=== PATIENT | male | born 1945 | race Caucasian/White ===

== ENCOUNTER → 2023-03-06 10:54 | Outpatient (REF) | payer MEDICARE, OTHER, SELFPAY ==
[2023-03-06 11:38] LABS: Hematocrit 34.2 % (39.0-52.0); Hemoglobin 11.4 g/dL (13.0-18.0); Mean Corp Hgb Conc. 33.3 g/dL (33.0-37.0); Mean Corpuscular Hgb 29.9 pg (27.0-31.0); Mean Corpuscular Volume 89.8 fL (80.0-94.0); Mean Platelet Volume 11.3 fL (7.4-10.4); Platelet Count 292 10^3/uL (130-400); Red Blood Cell Count 3.81 10^6/uL (4.70-6.10); Red Cell Dist. Width 12.2 % (11.5-14.5)
[2023-03-06 12:00] LABS: Blood Urea Nitrogen 46 mg/dl (9-20); Calcium 9.8 mg/dl (8.4-10.2); Carbon Dioxide 22 mmol/L (22-30); Chloride 100 mmol/L (98-107); Glucose 97 mg/dl (70-99); Iron 111 ug/dl (49-181); Phosphorus 4.4 mg/dl (2.5-4.5); Potassium 5.3 mmol/L (3.5-5.1); Sodium 134 mmol/L (135-145); eGFR 26.94
[2023-03-06 12:09] LABS: Percent Saturation 43 % (20-50); Total Iron Binding Capacity 258 ug/dl (261-462)
[2023-03-06 12:15] LABS: Intact PTH 49.9 pg/ml (13.6-85.8)
[2023-03-06 12:27] LABS: Protein/creatinine Ratio 0.8; Urine Protein 34 mg/dl
[2023-03-10 14:25] LABS: Albumin 4.24 g/dL (3.75-5.01); Alpha 2 Globulin 0.69 g/dL (0.48-1.05); SPEP IFE Reflex Not Done; Total Protein-Electrophoresis 6.8 g/dL (6.3-8.2)
== END ==
LOC: REG 10:54
PROVIDERS: ATTENDING PHYSICIAN Internal Medicine; FAMILY PHYSICIAN Internal Medicine
DX: N18.4 Chronic kidney disease, stage 4 (severe) (principal); D64.9 Anemia, unspecified
CPT/HCPCS: 36415; 80069; 82570; 82728; 83540; 83550; 83970; 84155; 84156; 84165; 85027

== ENCOUNTER → 2023-03-07 14:14 | Outpatient (REF) | payer MEDICARE, OTHER, SELFPAY ==
[2023-03-10 20:21] LABS: 24 Hour Urine Total Volume 2300 mL; Total Protein, Urine 327 mg/d (<=150); Urine Collection Length 24 hr; Urine Free Kappa Excretion/Day 42.83 mg/d; Urine Free Kappa Light Chains 18.62 mg/L (0.00-32.90); Urine Free Lambda Light Chains 2.74 mg/L (0.00-3.79)
== END ==
LOC: REG 14:14
PROVIDERS: ATTENDING PHYSICIAN Internal Medicine; FAMILY PHYSICIAN Internal Medicine
DX: N18.4 Chronic kidney disease, stage 4 (severe) (principal)
CPT/HCPCS: 81050; 83521; 84156; 86335

== ENCOUNTER → 2023-04-06 10:52 | Outpatient (REF) | payer MEDICARE, OTHER, SELFPAY ==
[2023-04-06 12:40] LABS: Albumin 4.2 g/dl (3.5-5.0); Blood Urea Nitrogen 28 mg/dl (9-20); Calcium 9.4 mg/dl (8.4-10.2); Carbon Dioxide 24 mmol/L (22-30); Chloride 107 mmol/L (98-107); Glucose 86 mg/dl (70-99); Phosphorus 4.2 mg/dl (2.5-4.5); Sodium 135 mmol/L (135-145); eGFR 26.94
== END ==
LOC: REG 10:52
PROVIDERS: ATTENDING PHYSICIAN Internal Medicine
DX: I10 Essential (primary) hypertension (principal); N18.4 Chronic kidney disease, stage 4 (severe); D64.9 Anemia, unspecified
CPT/HCPCS: 36415; 80069

== ENCOUNTER → 2023-04-30 10:22 | Outpatient (REF) | payer MEDICARE, OTHER, SELFPAY ==
[2023-04-30 12:16] LABS: Albumin 4.3 g/dl (3.5-5.0); Blood Urea Nitrogen 37 mg/dl (9-20); Calcium 9.6 mg/dl (8.4-10.2); Carbon Dioxide 21 mmol/L (22-30); Chloride 105 mmol/L (98-107); Glucose 87 mg/dl (70-99); Phosphorus 4.5 mg/dl (2.5-4.5); Potassium 4.7 mmol/L (3.5-5.1); Sodium 137 mmol/L (135-145); eGFR 25.65
== END ==
LOC: REG 10:22
PROVIDERS: ATTENDING PHYSICIAN Internal Medicine; FAMILY PHYSICIAN Internal Medicine
DX: N18.4 Chronic kidney disease, stage 4 (severe) (principal)
CPT/HCPCS: 36415; 80069

== ENCOUNTER → 2023-05-30 10:14 | Outpatient (REF) | payer MEDICARE, OTHER, SELFPAY ==
[2023-05-30 12:03] LABS: Albumin 4.1 g/dl (3.5-5.0); Blood Urea Nitrogen 36 mg/dl (9-20); Calcium 9.6 mg/dl (8.4-10.2); Carbon Dioxide 20 mmol/L (22-30); Chloride 108 mmol/L (98-107); Glucose 83 mg/dl (70-99); Phosphorus 4.1 mg/dl (2.5-4.5); Potassium 4.8 mmol/L (3.5-5.1); Sodium 136 mmol/L (135-145); eGFR 26.94
== END ==
LOC: REG 10:14
PROVIDERS: ATTENDING PHYSICIAN Internal Medicine; FAMILY PHYSICIAN Internal Medicine
DX: I10 Essential (primary) hypertension (principal); N18.4 Chronic kidney disease, stage 4 (severe)
CPT/HCPCS: 36415; 80069

== ENCOUNTER → 2023-07-16 10:28 | Outpatient (REF) | payer MEDICARE, OTHER, SELFPAY ==
[2023-07-16 12:56] LABS: Albumin 4.3 g/dl (3.5-5.0); Blood Urea Nitrogen 41 mg/dl (9-20); Calcium 9.5 mg/dl (8.4-10.2); Carbon Dioxide 20 mmol/L (22-30); Chloride 109 mmol/L (98-107); Glucose 86 mg/dl (70-99); Phosphorus 4.4 mg/dl (2.5-4.5); Sodium 139 mmol/L (135-145); eGFR 28.35
== END ==
LOC: REG 10:28
PROVIDERS: ATTENDING PHYSICIAN Internal Medicine; FAMILY PHYSICIAN Internal Medicine
DX: I10 Essential (primary) hypertension (principal); D64.9 Anemia, unspecified; N18.4 Chronic kidney disease, stage 4 (severe)
CPT/HCPCS: 36415; 80069

== ENCOUNTER → 2023-10-16 10:08 | Outpatient (REF) | payer MEDICARE, OTHER, SELFPAY ==
[2023-10-16 11:47] LABS: Hematocrit 28.8 % (39.0-52.0); Hemoglobin 9.4 g/dL (13.0-18.0); Mean Corp Hgb Conc. 32.6 g/dL (33.0-37.0); Mean Corpuscular Hgb 30.6 pg (27.0-31.0); Mean Corpuscular Volume 93.8 fL (80.0-94.0); Mean Platelet Volume 11.3 fL (7.4-10.4); Platelet Count 295 10^3/uL (130-400); Red Blood Cell Count 3.07 10^6/uL (4.70-6.10); Red Cell Dist. Width 12.9 % (11.5-14.5)
[2023-10-16 12:08] LABS: Urine Protein 31 mg/dl (0-12)
[2023-10-16 12:17] LABS: Albumin 4.3 g/dl (3.5-5.0); Blood Urea Nitrogen 33 mg/dl (9-20); Calcium 9.7 mg/dl (8.4-10.2); Carbon Dioxide 23 mmol/L (22-30); Chloride 106 mmol/L (98-107); Glucose 92 mg/dl (70-99); Iron 91 ug/dl (49-181); Phosphorus 4.1 mg/dl (2.5-4.5); Potassium 5.1 mmol/L (3.5-5.1); Sodium 140 mmol/L (135-145)
[2023-10-16 12:18] LABS: Intact PTH 66.2 pg/ml (13.6-85.8)
[2023-10-16 12:27] LABS: Percent Saturation 36 % (20-50); Total Iron Binding Capacity 249 ug/dl (261-462)
== END ==
LOC: REG 10:08
PROVIDERS: ATTENDING PHYSICIAN Internal Medicine; FAMILY PHYSICIAN Internal Medicine
DX: N18.4 Chronic kidney disease, stage 4 (severe) (principal); D64.9 Anemia, unspecified
CPT/HCPCS: 36415; 80069; 82570; 82728; 83540; 83550; 83970; 84156; 85027

== ENCOUNTER → 2023-11-20 08:00 | Outpatient (REF) | payer MEDICARE, OTHER, SELFPAY ==
[2023-11-19 15:25] LABS: LDH 165 U/L (120-246)
[2023-11-19 15:30] LABS: Reticulocyte Count 1.4 % (0.4-2.8)
[2023-11-19 16:31] LABS: Folate > 20.0 ng/ml (2.76-20); Vitamin B12 489 pg/ml (239-931)
[2023-11-21 14:04] LABS: Erythropoietin (EPO) 6 mU/mL (4-27)
[2023-11-21 22:10] LABS: Haptoglobin 168 mg/dL (30-200)
== END ==
LOC: OIDL 08:00
PROVIDERS: ATTENDING PHYSICIAN Internal Medicine Hematology & Oncology
DX: D63.1 Anemia in chronic kidney disease (principal); D72.821 Monocytosis (symptomatic); D51.9 Vitamin B12 deficiency anemia, unspecified
CPT/HCPCS: 82607; 82668; 82746; 83010; 83615; 85045; 86880

== ENCOUNTER → 2023-12-06 11:31 | Outpatient (REF) | payer MEDICARE, OTHER, SELFPAY ==
[2023-12-06 12:18] LABS: % Basophils 0.5 % (0-2); % Eosinophils 1.5 % (0-6); % Immature Granulocytes 0.1 % (0-0.5); % Lymphocytes 28.6 % (20.5-51.1); % Neutrophils 58.3 % (42.2-75.2); Absolute Eosinophils 0.1 10^3/uL (0-0.7); Absolute Lymphocytes 2.1 10^3/uL (1.2-3.4); Absolute Monocytes 0.8 10^3/uL (0.1-0.6); Absolute Neutrophils 4.4 10^3/uL (1.4-6.5); Hematocrit 28.4 % (39.0-52.0); Hemoglobin 9.3 g/dL (13.0-18.0); Mean Corp Hgb Conc. 32.7 g/dL (33.0-37.0); Mean Corpuscular Hgb 30.8 pg (27.0-31.0); Mean Platelet Volume 11.1 fL (7.4-10.4); Nucleated Red Blood Cells % 0 % (-); Platelet Count 278 10^3/uL (130-400); Red Blood Cell Count 3.02 10^6/uL (4.70-6.10); Red Cell Dist. Width 12.8 % (11.5-14.5); White Blood Cell Count 7.5 10^3/uL (4.8-10.8)
[2023-12-06 13:06] LABS: Blood Urea Nitrogen 37 mg/dl (9-20); Iron 110 ug/dl (49-181)
[2023-12-06 13:15] LABS: Percent Saturation 45 % (20-50); Total Iron Binding Capacity 242 ug/dl (261-462)
== END ==
LOC: REG 11:31
PROVIDERS: ATTENDING PHYSICIAN Internal Medicine Hematology & Oncology; FAMILY PHYSICIAN Internal Medicine
DX: D63.1 Anemia in chronic kidney disease (principal); D72.821 Monocytosis (symptomatic)
CPT/HCPCS: 36415; 82565; 82728; 83540; 83550; 84520; 85025

== ENCOUNTER → 2023-12-22 10:24 | Outpatient (REF) | payer MEDICARE, OTHER, SELFPAY ==
[2023-12-22 11:06] LABS: % Basophils 0.6 % (0-2); % Eosinophils 1.6 % (0-6); % Immature Granulocytes 0.1 % (0-0.5); % Lymphocytes 25.4 % (20.5-51.1); % Monocytes 16.5 % (1.7-9.3); % Neutrophils 55.8 % (42.2-75.2); Absolute Eosinophils 0.1 10^3/uL (0-0.7); Absolute Lymphocytes 1.7 10^3/uL (1.2-3.4); Absolute Monocytes 1.1 10^3/uL (0.1-0.6); Absolute Neutrophils 3.8 10^3/uL (1.4-6.5); Hematocrit 30.8 % (39.0-52.0); Mean Corp Hgb Conc. 32.5 g/dL (33.0-37.0); Mean Corpuscular Hgb 30.8 pg (27.0-31.0); Mean Corpuscular Volume 94.8 fL (80.0-94.0); Mean Platelet Volume 10.7 fL (7.4-10.4); Nucleated Red Blood Cells % 0 % (-); Platelet Count 304 10^3/uL (130-400); Red Blood Cell Count 3.25 10^6/uL (4.70-6.10); White Blood Cell Count 6.9 10^3/uL (4.8-10.8)
== END ==
LOC: REG 10:24
PROVIDERS: ATTENDING PHYSICIAN Internal Medicine Hematology & Oncology; FAMILY PHYSICIAN Internal Medicine
DX: D63.1 Anemia in chronic kidney disease (principal); D72.821 Monocytosis (symptomatic); N18.4 Chronic kidney disease, stage 4 (severe)
CPT/HCPCS: 36415; 85025

== ENCOUNTER → 2024-01-05 10:17 | Outpatient (REF) | payer MEDICARE, OTHER, SELFPAY ==
[2024-01-05 10:36] LABS: % Basophils 0.8 % (0-2); % Eosinophils 2.4 % (0-6); % Immature Granulocytes 0.3 % (0-0.5); % Lymphocytes 26.2 % (20.5-51.1); % Monocytes 13.7 % (1.7-9.3); % Neutrophils 56.6 % (42.2-75.2); Absolute Basophils 0.1 10^3/uL (0-0.2); Absolute Eosinophils 0.2 10^3/uL (0-0.7); Absolute Lymphocytes 1.9 10^3/uL (1.2-3.4); Hematocrit 38.1 % (39.0-52.0); Hemoglobin 11.7 g/dL (13.0-18.0); Mean Corp Hgb Conc. 30.7 g/dL (33.0-37.0); Mean Corpuscular Hgb 30.1 pg (27.0-31.0); Mean Corpuscular Volume 97.9 fL (80.0-94.0); Nucleated Red Blood Cells % 0 % (-); Platelet Count 326 10^3/uL (130-400); Red Blood Cell Count 3.89 10^6/uL (4.70-6.10); Red Cell Dist. Width 13.9 % (11.5-14.5); White Blood Cell Count 7.1 10^3/uL (4.8-10.8)
== END ==
LOC: REG 10:17
PROVIDERS: ATTENDING PHYSICIAN Internal Medicine Hematology & Oncology; FAMILY PHYSICIAN Internal Medicine
DX: D63.1 Anemia in chronic kidney disease (principal); D72.821 Monocytosis (symptomatic); N18.4 Chronic kidney disease, stage 4 (severe)
CPT/HCPCS: 36415; 85025

== ENCOUNTER → 2024-01-19 10:34 | Outpatient (REF) | payer MEDICARE, OTHER, SELFPAY ==
[2024-01-19 11:23] LABS: % Basophils 0.7 % (0-2); % Eosinophils 2.9 % (0-6); % Immature Granulocytes 0.3 % (0-0.5); % Monocytes 11.8 % (1.7-9.3); % Neutrophils 57.3 % (42.2-75.2); Absolute Basophils 0.1 10^3/uL (0-0.2); Absolute Eosinophils 0.2 10^3/uL (0-0.7); Absolute Lymphocytes 1.9 10^3/uL (1.2-3.4); Absolute Monocytes 0.8 10^3/uL (0.1-0.6); Hematocrit 37.9 % (39.0-52.0); Hemoglobin 12.1 g/dL (13.0-18.0); Mean Corp Hgb Conc. 31.9 g/dL (33.0-37.0); Mean Corpuscular Hgb 29.9 pg (27.0-31.0); Mean Corpuscular Volume 93.6 fL (80.0-94.0); Mean Platelet Volume 10.8 fL (7.4-10.4); Nucleated Red Blood Cells % 0 % (-); Platelet Count 294 10^3/uL (130-400); Red Blood Cell Count 4.05 10^6/uL (4.70-6.10); Red Cell Dist. Width 13.1 % (11.5-14.5); White Blood Cell Count 6.9 10^3/uL (4.8-10.8)
[2024-01-19 11:41] LABS: Protein/creatinine Ratio 1.2; Urine Protein 62 mg/dl
[2024-01-19 11:48] LABS: Albumin 4.4 g/dl (3.5-5.0); Blood Urea Nitrogen 30 mg/dl (9-20); Calcium 9.6 mg/dl (8.4-10.2); Carbon Dioxide 26 mmol/L (22-30); Chloride 104 mmol/L (98-107); Glucose 87 mg/dl (70-99); Potassium 5.3 mmol/L (3.5-5.1); Sodium 140 mmol/L (135-145); eGFR 26.78
== END ==
LOC: REG 10:34
PROVIDERS: ATTENDING PHYSICIAN Internal Medicine Hematology & Oncology; FAMILY PHYSICIAN Internal Medicine; REFERRING PHYSICIAN Internal Medicine
DX: D63.1 Anemia in chronic kidney disease (principal); D72.821 Monocytosis (symptomatic); N18.4 Chronic kidney disease, stage 4 (severe); I10 Essential (primary) hypertension; D64.9 Anemia, unspecified
CPT/HCPCS: 36415; 80069; 82570; 83970; 84156; 85025

== ENCOUNTER → 2024-02-01 11:55 | Outpatient (REF) | payer MEDICARE, OTHER, SELFPAY ==
[2024-02-01 12:52] LABS: % Basophils 1.1 % (0-2); % Eosinophils 5.1 % (0-6); % Immature Granulocytes 0.3 % (0-0.5); % Lymphocytes 26.5 % (20.5-51.1); % Monocytes 11.9 % (1.7-9.3); % Neutrophils 55.1 % (42.2-75.2); Absolute Basophils 0.1 10^3/uL (0-0.2); Absolute Eosinophils 0.4 10^3/uL (0-0.7); Absolute Lymphocytes 1.9 10^3/uL (1.2-3.4); Absolute Monocytes 0.9 10^3/uL (0.1-0.6); Hematocrit 34.6 % (39.0-52.0); Mean Corp Hgb Conc. 31.8 g/dL (33.0-37.0); Mean Corpuscular Hgb 29.6 pg (27.0-31.0); Mean Corpuscular Volume 93.3 fL (80.0-94.0); Nucleated Red Blood Cells % 0 % (-); Platelet Count 312 10^3/uL (130-400); Red Blood Cell Count 3.71 10^6/uL (4.70-6.10); Red Cell Dist. Width 12.7 % (11.5-14.5); White Blood Cell Count 7.2 10^3/uL (4.8-10.8)
== END ==
LOC: REG 11:55
PROVIDERS: ATTENDING PHYSICIAN Internal Medicine Hematology & Oncology; FAMILY PHYSICIAN Internal Medicine
DX: D63.1 Anemia in chronic kidney disease (principal); D72.821 Monocytosis (symptomatic); N18.4 Chronic kidney disease, stage 4 (severe)
CPT/HCPCS: 36415; 85025

== ENCOUNTER 2024-02-18 18:30 | Emergency (ER) | payer MEDICARE, OTHER, SELFPAY ==
[2024-02-18 18:57] VITALS: BP 115/75
[2024-02-18] MEDS: TYLENOL 1000 MG PO (19:07)
[2024-02-18 19:59] LABS: % Basophils 0.1 % (0-2); % Immature Granulocytes 0.3 % (0-0.5); % Lymphocytes 12.4 % (20.5-51.1); % Monocytes 17.1 % (1.7-9.3); % Neutrophils 70.1 % (42.2-75.2); Absolute Lymphocytes 1.1 10^3/uL (1.2-3.4); Absolute Monocytes 1.5 10^3/uL (0.1-0.6); Hematocrit 32.4 % (39.0-52.0); Hemoglobin 10.7 g/dL (13.0-18.0); Mean Corpuscular Volume 90.8 fL (80.0-94.0); Mean Platelet Volume 11.2 fL (7.4-10.4); Nucleated Red Blood Cells % 0 % (-); Platelet Count 229 10^3/uL (130-400); Red Blood Cell Count 3.57 10^6/uL (4.70-6.10); Red Cell Dist. Width 12.3 % (11.5-14.5); White Blood Cell Count 8.6 10^3/uL (4.8-10.8)
[2024-02-18 20:15] LABS: COVID-19 Antigen Negative (Negative)
[2024-02-18 20:20] LABS: ALT (SGPT) 19 U/L (0-50); AST (SGOT) 33 U/L (17-59); Albumin 3.5 g/dl (3.5-5.0); Alkaline Phosphatase 78 U/L (38-126); Blood Urea Nitrogen 32 mg/dl (9-20); Calcium 8.4 mg/dl (8.4-10.2); Carbon Dioxide 21 mmol/L (22-30); Chloride 100 mmol/L (98-107); Glucose 146 mg/dl (70-99); Potassium 4.8 mmol/L (3.5-5.1); Sodium 132 mmol/L (135-145); Total Bilirubin 0.3 mg/dl (0.2-1.3); Total Protein 5.9 g/dl (6.3-8.2); eGFR 21.34
--- NOTE | 2024-02-18 21:42 | ED.GENMED ---
History of Present Illness
General
Chief Complaint: Cold/Flu/URI Symptoms
Source: patient
Exam Limitations: none
Time Seen by Provider: 02/18/24 21:41
Nursing documentation reviewed up to this point in time: agreed with
History of Present Illness
History of Present Illness:
Patient is a 78-year-old male with past medical history of hypertension stage IV kidney disease presents for evaluation. Patient started last Sunday, 6 days ago with sore throat mild nasal congestion. Pt got back from [place] 4 d ago and sympoms.
worsened . He is felt very nauseous though he has been drinking water he has not been eating because of the nausea. He feels very weak. His has COVID.
He denies any chest pain shortness of breath. He reports he had a cough however cough has gotten much better.
Past History
Past History
ED Past Medical History: GERD, HTN and Other (colon Polyps)
ED Past Surgical History: None
Social History
Tobacco: Non-smoker
Alcohol: Occasional
Personal:
Living: with family
Review of Systems
Review of Systems
Allergies reviewed?: Yes
All Other Systems: ROS reviewed and negative except as documented in HPI and ROS
Constitutional: Reports fatigue and chills
EENT: Reports other (Nasal congestion)
Respiratory: Reports cough
Cardiac: Reports no symptoms
ABD/GI: Reports nausea; Denies abdominal pain, vomiting or diarrhea
: Reports no symptoms
Musculoskeletal: Reports other (body aches )
Skin: Reports no symptoms
Psychiatric: Reports no symptoms
Phy Exam
General Physical Exam
General Presentation: no apparent distress
General age: appears stated age
General Skin: warm and dry
General Habitus: normal
General Mental: alert
General Hydration: appears well hydrated
Cardiovascular Exam
Cardiovascular Exam: regular rate/rhythm, no murmur and normal peripheral pulses
Pulmonary Exam
Pulmonary Exam: lungs clear and no respiratory distress
Neurological Exam
Neurological Exam: alert and oriented x3
Musculoskeletal Exam
Musculoskeletal Exam: full ROM
Skin Exam
Skin Exam: normal color and warm/dry
Psychiatric Exam
Psychiatric Exam: normal mood/affect
Course
Orders/Labs/Results
Orders:
Orders
02/18/24 19:03
Acetaminophen [Tylenol] 1,000 mg PO NOW STA
02/18/24 19:32
CMP [Comprehensive Metabolic Panel] Urgent
COVID-19 Antigen Urgent
Source: Nasal Swab
Complete Blood Count/With Diff Urgent
INF RAPID [Influenza A+B Rapid Molecular] Urgent
MAYELA Source: Nasal Swab
Specimen Description:
02/18/24 21:42
Vital Signs- Treatment ONCE
Frequency: Once
02/18/24 21:56
Ondansetron Orally Disint [Zofran Odt (Orally Disintegrating)] 4 mg PO NOW STA
Abnormal Lab Results
02/18/24
19:32
RBC 3.57 L 10^6/uL
(4.70-6.10)
Hgb 10.7 L g/dL
(13.0-18.0)
Hct 32.4 L %
(39.0-52.0)
MPV 11.2 H fL
(7.4-10.4)
Absolute Lymphs (auto) 1.1 L 10^3/uL
(1.2-3.4)
Absolute Monos (auto) 1.5 H 10^3/uL
(0.1-0.6)
Lymphocytes % 12.4 L %
(20.5-51.1)
Monocytes % 17.1 H %
(1.7-9.3)
Sodium 132 L mmol/L
(135-145)
Carbon Dioxide 21 L mmol/L
(22-30)
BUN 32 H mg/dl
(9-20)
Creatinine 2.9 H mg/dL
(0.7-1.3)
Glucose 146 H mg/dl
(70-99)
Total Protein 5.9 L g/dl
(6.3-8.2)
02/18/24 19:32
02/18/24 19:32
Vital Signs
Initial and Last Documented VS:
Initial Vital Signs
Temp Pulse Resp BP Pulse Ox
103.0 F H 86 20 115/75 97
02/18/24 18:57 02/18/24 18:57 02/18/24 18:57 02/18/24 18:57 02/18/24 18:57
Last Documented Vital Signs
Temp Pulse Resp BP Pulse Ox
98.1 F 75 16 106/66 98
02/18/24 21:57 02/18/24 21:57 02/18/24 21:57 02/18/24 21:57 02/18/24 21:57
MDM/Problems Addressed
MDM/Problems Addressed:
Patient is a 78-year-old male with past medical history of chronic kidney disease stage IV hypertension reflux presents to the ER for evaluation. Patient has been sick for the past 6 days started with sore throat nasal congestion now with chills
fatigue and nausea for the past several days. He has however been able to drink fluids. He has not eating as much creased appetite nausea. Patient's is positive for COVID however patient was found to be positive for influenza. He is in no
acute distress he arrives with a temperature of 103 was given Tylenol repeat temp is 98.1 he is nontachycardic nontachypneic lungs are clear with a normal white count mildly anemic with a hemoglobin of 10.7. BUN and creatinine elevated however
creatinine is only minimally elevated compared to baseline.
Patient was given Zofran here feeling much better tolerated vinicius razia water here and feels well to go home.
Discussed close outpatient follow-up and zofran, fluids, tylenol supportive care
*Critical Care Note
Total Time (30-74mins, 75-104mins- exclusive of procedures): Not Applicable
ED Attending Note
-
Portions of this chart may have been created with voice recognition software.� Occasional wrong word or��sound alike� substitutions may have occurred due to the inherent limitations of voice recognition software.
Discharge Plan
Departure
Patient Disposition: Home (Routine Discharge)
Date of Disposition: 02/18/24
Time of Disposition: 22:50
Patient with high blood pressure during this ER visit?: No
Condition: Fair
Covid-19: Not Applicable
Discharge Problem:
Influenza A
Instructions: Fever, Adult (DC), Flu in adults - Discharge instructions
Prescriptions:
New
ondansetron 4 mg tablet,disintegrating
4 mg PO Q8H PRN (Reason: nausea and vomiting) Qty: 10 0RF
No Action
clindamycin HCl 300 MG capsule
300 mg PO QID Qty: 40 0RF
oxycodone-acetaminophen 5 MG/325 MG tablet
1 tab PO Q4HPRN PRN (Reason: pain) Qty: 15 0RF
ondansetron 4 MG tablet,disintegrating
4 mg PO Q8HPRN PRN (Reason: Nausea/Vomiting) Qty: 10 0RF
metronidazole 500 MG tablet
500 mg PO TID Qty: 30 0RF
levofloxacin 500 MG tablet
500 mg PO DAILY Qty: 10 0RF
ondansetron [Zofran ODT] 8 MG tablet,disintegrating
8 mg PO TID PRN (Reason: nausea/vomiting) Qty: 10 0RF
Referrals:
Sarahi Thurman MD [Family Provider] -
Activity Restrictions/Additional Instructions:
As discussed lee Felipe medicine presenting pharmacy take as directed. Stay well-hydrated and slowly try and begin to eat solid foods. You may take Tylenol as needed for fever chills body aches. Follow-up closely with your family doctor in
the next several days. Return if any worsening of symptoms.
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
Interventions
Interventions:
*Neglect/Abuse Screening Last Done: 02/18/24 22:50
*ED COVID-19 Vaccine History Last Done: 02/18/24 19:09
*Nursing Disposition Last Done: 02/18/24 23:02
ED- Pulmonary Assessment Last Done: 02/18/24 22:50
Discharge Date and Time
Print Language: GERMAN
[2024-02-18 21:57] VITALS: BP 106/66
[2024-02-18] MEDS: ZOFRAN ODT (ORALLY DISINTEGRATING) 4 MG PO (22:00)
== END 2024-02-18 23:03 | disposition home or self-care (01) ==
LOC: EMR 18:30
PROVIDERS: Emergency Medicine; EMERGENCY PHYSICIAN Emergency Medicine; FAMILY PHYSICIAN Internal Medicine
DX: J10.1 Influenza due to other identified influenza virus with other respiratory manifestations (principal); N18.4 Chronic kidney disease, stage 4 (severe); I12.9 Hypertensive chronic kidney disease with stage 1 through stage 4 chronic kidney disease, or unspecified chronic kidney disease; Z11.52 Encounter for screening for COVID-19
CPT/HCPCS: 99283; 80053; 85025; 87502; 87811

== ENCOUNTER → 2024-03-01 09:53 | Outpatient (REF) | payer MEDICARE, OTHER, SELFPAY ==
[2024-03-01 10:34] LABS: % Basophils 0.2 % (0-2); % Eosinophils 1.9 % (0-6); % Immature Granulocytes 0.5 % (0-0.5); % Lymphocytes 18.1 % (20.5-51.1); % Monocytes 10.8 % (1.7-9.3); % Neutrophils 68.5 % (42.2-75.2); Absolute Eosinophils 0.2 10^3/uL (0-0.7); Absolute Immature Granulocytes 0.1 10^3/uL (0-0.05); Absolute Lymphocytes 2.3 10^3/uL (1.2-3.4); Absolute Monocytes 1.4 10^3/uL (0.1-0.6); Absolute Neutrophils 8.7 10^3/uL (1.4-6.5); Hematocrit 31.1 % (39.0-52.0); Hemoglobin 10.2 g/dL (13.0-18.0); Mean Corp Hgb Conc. 32.8 g/dL (33.0-37.0); Mean Corpuscular Hgb 29.6 pg (27.0-31.0); Mean Corpuscular Volume 90.1 fL (80.0-94.0); Mean Platelet Volume 9.5 fL (7.4-10.4); Nucleated Red Blood Cells % 0 % (-); Platelet Count 568 10^3/uL (130-400); Red Blood Cell Count 3.45 10^6/uL (4.70-6.10); Red Cell Dist. Width 12.5 % (11.5-14.5); White Blood Cell Count 12.7 10^3/uL (4.8-10.8)
[2024-03-01 10:59] LABS: HDL Cholesterol 37 mg/dl; LDL Cholesterol, Calculated 108 mg/dl; Total Cholesterol 166 mg/dl (50-199); Triglyceride 109 mg/dl (10-149); Very Low Density Lipoprotein 21 mg/dl (0-30)
[2024-03-01 11:28] LABS: PSA, Total - Screen 3.83 ng/ml (0.0-4.0); TSH Reflex To Free T4 1.65 uIU/ml (0.47-4.68)
== END ==
LOC: REG 09:53
PROVIDERS: ATTENDING PHYSICIAN Internal Medicine Hematology & Oncology; FAMILY PHYSICIAN Internal Medicine
DX: D63.1 Anemia in chronic kidney disease (principal); D72.821 Monocytosis (symptomatic); M18.4 Other bilateral secondary osteoarthritis of first carpometacarpal joints; E78.5 Hyperlipidemia, unspecified; R53.83 Other fatigue; Z12.5 Encounter for screening for malignant neoplasm of prostate
CPT/HCPCS: 36415; 80061; 84443; 85025; G0103

== ENCOUNTER → 2024-04-16 09:44 | Outpatient (REF) | payer MEDICARE, OTHER, SELFPAY ==
[2024-04-16 11:00] LABS: Protein/creatinine Ratio 0.9; Urine Protein 45 mg/dl
[2024-04-16 11:09] LABS: Albumin 4.3 g/dl (3.5-5.0); Blood Urea Nitrogen 35 mg/dl (9-20); Calcium 9.5 mg/dl (8.4-10.2); Carbon Dioxide 23 mmol/L (22-30); Chloride 105 mmol/L (98-107); Glucose 92 mg/dl (70-99); Phosphorus 4.2 mg/dl (2.5-4.5); Potassium 5.1 mmol/L (3.5-5.1); Sodium 137 mmol/L (135-145)
[2024-04-18 10:49] LABS: 24 Hour Urine Total Volume Random mL; Urine Collection Length Random hr; Urine Free Kappa Light Chains 40.65 mg/L (0.00-32.90); Urine Free Lambda Light Chains 6.44 mg/L (0.00-3.79)
== END ==
LOC: REG 09:44
PROVIDERS: ATTENDING PHYSICIAN Internal Medicine; FAMILY PHYSICIAN Internal Medicine
DX: N18.4 Chronic kidney disease, stage 4 (severe) (principal)
CPT/HCPCS: 36415; 80069; 82570; 83521; 84155; 84156; 84165; 86335

== ENCOUNTER 2024-07-24 06:17 | Day surgery (SDC) | payer MEDICARE, OTHER, SELFPAY | END 2024-07-24 12:44 | disposition home or self-care (01) | LOC: GI 06:17 | PROVIDERS: ATTENDING PHYSICIAN Specialist | DX: Z12.11 Encounter for screening for malignant neoplasm of colon (principal); R12 Heartburn; K21.00 Gastro-esophageal reflux disease with esophagitis, without bleeding; D12.3 Benign neoplasm of transverse colon; K63.5 Polyp of colon; K25.9 Gastric ulcer, unspecified as acute or chronic, without hemorrhage or perforation; Z86.0101 Personal history of adenomatous and serrated colon polyps | CPT/HCPCS: 45385; 43239; 88305; 88312 ==

== ENCOUNTER → 2024-08-16 09:28 | Outpatient (REF) | payer MEDICARE, OTHER, SELFPAY ==
[2024-08-16 10:24] LABS: Albumin 4.4 g/dl (3.5-5.0); Blood Urea Nitrogen 37 mg/dl (9-20); Calcium 9.5 mg/dl (8.4-10.2); Carbon Dioxide 22 mmol/L (22-30); Chloride 109 mmol/L (98-107); Glucose 91 mg/dl (70-99); Potassium 4.8 mmol/L (3.5-5.1); Sodium 138 mmol/L (135-145); eGFR 23.10
== END ==
LOC: REG 09:28
PROVIDERS: ATTENDING PHYSICIAN Internal Medicine; FAMILY PHYSICIAN Internal Medicine
DX: N18.4 Chronic kidney disease, stage 4 (severe) (principal)
CPT/HCPCS: 36415; 80069; 82570; 83970; 84156

== ENCOUNTER → 2024-09-13 10:11 | Outpatient (REF) | payer MEDICARE, OTHER, SELFPAY ==
[2024-09-13 11:09] LABS: Hematocrit 31.5 % (39.0-52.0); Hemoglobin 10.1 g/dL (13.0-18.0); Mean Corp Hgb Conc. 32.1 g/dL (33.0-37.0); Mean Corpuscular Volume 92.1 fL (80.0-94.0); Nucleated Red Blood Cells % 0 % (-); Platelet Count 268 10^3/uL (130-400); Red Cell Dist. Width 12.6 % (11.5-14.5)
[2024-09-13 11:29] LABS: Albumin 4.3 g/dl (3.5-5.0); Blood Urea Nitrogen 37 mg/dl (9-20); Calcium 9.3 mg/dl (8.4-10.2); Carbon Dioxide 26 mmol/L (22-30); Chloride 107 mmol/L (98-107); Glucose 78 mg/dl (70-99); Iron 120 ug/dl (49-181); Potassium 4.9 mmol/L (3.5-5.1); Sodium 138 mmol/L (135-145); eGFR 25.34
[2024-09-13 11:38] LABS: Total Iron Binding Capacity 252 ug/dl (261-462)
[2024-09-13 12:02] LABS: Ferritin 124.0 ng/ml (17.9-464.0)
== END ==
LOC: REG 10:11
PROVIDERS: ATTENDING PHYSICIAN Internal Medicine; FAMILY PHYSICIAN Internal Medicine; REFERRING PHYSICIAN Internal Medicine Hematology & Oncology
DX: N18.4 Chronic kidney disease, stage 4 (severe) (principal); D63.1 Anemia in chronic kidney disease; D72.821 Monocytosis (symptomatic)
CPT/HCPCS: 36415; 80069; 82728; 83540; 83550; 85025